=== PATIENT | female | born 1935 | race Caucasian/White ===

== ENCOUNTER 2022-09-11 17:57 | Emergency (ER) | payer OTHER ==
[~2022-09-11] VITALS: Ht 162.6 cm; Wt 95.3 kg
[2022-09-11 18:41] LABS: HEMATOCRIT 35.1 % (31.2-41.9); MEAN CORPUSCULAR HEMOGLOBIN 27.9 uug (24.7-32.8); MEAN CORPUSCULAR VOLUME 87.7 fL (75.5-95.3); PLATELET COUNT (AUTO) 228 K/uL (179-408)
[2022-09-11 18:46] LABS: CREATININE 0.9 mg/dL (0.6-1.3); POTASSIUM 4.1 mmol/L (3.5-5.1)
[2022-09-11 19:00] LABS: BILIRUBIN,DIRECT 0.1 mg/dL (0.0-0.2); BILIRUBIN,TOTAL 0.3 mg/dL (0.2-1.0); TOTAL PROTEIN, SERUM 6.3 g/dL (6.4-8.2)
--- NOTE | 2022-09-11 19:10 | NUR ---
Change of shift report from Phuc GARCIA
[2022-09-11 19:26] LABS: ABG BASE EXCESS 11.3 mmol/L; ABG HCO3 38.7 mmol/L; ABG PCO2 65.7 mmHg (35.0-45.0); ABG PH 7.388 (7.350-7.450); ABG PO2 64.7 mmHg (75.0-100.0); ABG SITE LEFT RADIAL; COHb 0.9 % (0.5-1.5); MetHb 0.3 % (0.0-1.5); O2Hb 90.9 % (94.0-97.0); VENT MODE Nasal Cannula
[2022-09-11 19:27] LABS: ACETAMINOPHEN < 2.0 ug/mL (10-30)
[2022-09-11] MEDS ORDERED: ACET-73 PO (19:30)
[2022-09-11] MEDS ORDERED: CETI-90 PO (19:30)
[2022-09-11] MEDS ORDERED: POTA10CA43 PO (19:30)
[2022-09-11] MEDS ORDERED: CALC-1029 PO (19:30)
[2022-09-11] MEDS ORDERED: METF-866 PO (19:30)
[2022-09-11] MEDS ORDERED: SIMV-46 PO (19:30)
[2022-09-11] MEDS ORDERED: FLUT1DIS28 INH (19:30)
[2022-09-11] MEDS ORDERED: NYST15PO4 TP (19:30)
[2022-09-11] MEDS ORDERED: LACT1CAP72 PO (19:30)
[2022-09-11] MEDS ORDERED: MELA3TAB41 PO (19:30)
[2022-09-11] MEDS ORDERED: vitamin b 12 PO (19:30)
[2022-09-11] MEDS ORDERED: NITROGLYCERIN OINT 1 GM PACKET TP ONE ×2 (19:30→19:36)
[2022-09-11] MEDS ORDERED: BETA1TAB19 PO (19:30)
[2022-09-11] MEDS ORDERED: ONDA4TAB5 PO (19:30)
[2022-09-11] MEDS ORDERED: OMEP20CA15 PO (19:30)
[2022-09-11] MEDS ORDERED: CEPH500T PO (19:30)
[2022-09-11] MEDS ORDERED: CLON0.2T PO (19:30)
[2022-09-11] MEDS ORDERED: ROPI0.5T4 PO (19:30)
[2022-09-11] MEDS ORDERED: TRAM50TA2 PO (19:30)
[2022-09-11] MEDS ORDERED: vitamin d3 PO (19:30)
[2022-09-11] MEDS ORDERED: OLME20TA13 PO (19:30)
[2022-09-11] MEDS ORDERED: TRIA1TAB3 PO (19:30)
[2022-09-11] MEDS ORDERED: ESTR1VAG7 VG (19:30)
[2022-09-11 19:44] VITALS: BP 189/83
--- NOTE | 2022-09-11 19:48 | NUR ---
Patient taken to CT by mineral technologist
--- NOTE | 2022-09-11 20:01 | NUR ---
Patient back from CT
[2022-09-11] MEDS ORDERED: FUROSEMIDE 40 MG/4 ML VIAL IV ONE (20:30)
[2022-09-11] MEDS ORDERED: FUROSEMIDE 40 MG/4 ML VIAL ONE (20:47)
[2022-09-11 21:16] LABS: ABG BASE EXCESS 6.6 mmol/L; ABG PCO2 56.2 mmHg (35.0-45.0); ABG PH 7.387 (7.350-7.450); ABG PO2 69.9 mmHg (75.0-100.0); ABG SITE LEFT RADIAL; ABG TOTAL HEMOGLOBIN 12.2 G/dL (12.0-16.0); COHb 0.7 % (0.5-1.5); MetHb 0.2 % (0.0-1.5); O2Hb 92.7 % (94.0-97.0); VENT MODE BIPAP 15/5
[2022-09-11 23:11] LABS: *BILIRUBIN,URIN NEGATIVE (NEGATIVE); *BLOOD, URINE NEGATIVE (NEGATIVE); *CLARITY,URINE CLEAR (CLEAR); *COLOR,URINE YELLOW (YELLOW); *KETONES,URINE NEGATIVE (NEGATIVE); *UROBILINOGEN,URINE 0.2 E.U./dl (NORMAL); LEUKOCYTE ESTERASE ,URINE 1+ (NEGATIVE); NITRITE, URINE NEGATIVE (NEGATIVE); UGLUCOSE NEGATIVE (NEGATIVE)
--- NOTE | 2022-09-11 23:36 | NUR ---
[facility], spoke with Daisha. No tranfer info at the moment
--- NOTE | 2022-09-11 23:39 | NUR ---
Opal Isaac [phone] - daughter
[2022-09-11 23:55] LABS: BACTERIA,URINE NONE SEEN /HPF (NONE SEEN); SQUAMOUS EPITHELIAL CELL,UR FEW /HPF (NONE SEEN); WBC,URINE 0-3 /HPF (0-3)
--- NOTE | 2022-09-12 00:51 | NUR ---
called [facility], spoke with Daisha. Patient have been accepted at [facility] but no bed assignment at this time. Will call me back for transfer info
--- NOTE | 2022-09-12 03:23 | NUR ---
[facility] authorization #: [id number]
--- NOTE | 2022-09-12 03:23 | NUR ---
[facility] called. No ALS ambulance available till 1230pm
--- NOTE | 2022-09-12 03:31 | NUR ---
called [facility], no unit available till 12 noon
--- NOTE | 2022-09-12 03:39 | NUR ---
called [facility], no unit available till 4pm
--- NOTE | 2022-09-12 03:41 | NUR ---
called [facility], no ALS unit available
--- NOTE | 2022-09-12 03:44 | NUR ---
called [facility], no ALS unit available
--- NOTE | 2022-09-12 07:10 | NUR ---
Recieved pt in bed, resting w/ both eyes closed, NAD noted, remaines on 02 at 2L via nasal cannula.
--- NOTE | 2022-09-12 09:00 | NUR ---
Brakfast tray provided, pt ate w/ moderate appetite, assissted w/ Pt's caregiver.
--- NOTE | 2022-09-12 11:45 | NUR ---
Report given to Ashley Soto RN @[phone]. ETA for pickup 1230.
--- NOTE | 2022-09-12 11:59 | NUR ---
Report given to [facility] transfering RN. Pt's daughter w/ Pt. Pt's vital signs stable for transfer. All belongings sent home w/ caregiver.
--- NOTE | 2022-09-12 12:15 | NUR ---
Pt left ER via gurney.
== END 2022-09-12 12:15 | disposition short-term general hospital (02) ==
LOC: ER 17:57
DX: J96.92 Respiratory failure, unspecified with hypercapnia (principal); J44.9 Chronic obstructive pulmonary disease, unspecified; R41.0 Disorientation, unspecified; E11.9 Type 2 diabetes mellitus without complications; Z79.84 Long term (current) use of oral hypoglycemic drugs; I50.9 Heart failure, unspecified; Z86.73 Personal history of transient ischemic attack (TIA), and cerebral infarction without residual deficits; R94.31 Abnormal electrocardiogram [ECG] [EKG]; J96.91 Respiratory failure, unspecified with hypoxia; Z20.822 Contact with and (suspected) exposure to COVID-19
CPT/HCPCS: 99291; 96374; 70450; 87426; 80076; 80048; 81001; 83880; 85025; 87086; 84484 ×2; 36415; 93005; 71045; 94660; 80299; 80179; 36600 ×2; J1940; A4663